=== PATIENT | male | born 1960 | race African-American/Black ===

== ENCOUNTER 2020-01-12 08:04 | Inpatient (IN) | payer MEDICAID, SELFPAY ==
[~2020-01-12] VITALS: Ht 177.8 cm; Wt 95.3 kg
--- NOTE | 2020-01-12 08:05 | NUR ---
Pt biba and taken to bed 05. [place] pd at bedside
[2020-01-12 08:10] VITALS: BP 124/78
--- NOTE | 2020-01-12 08:13 | NUR ---
[facility] Aware of patient and will help assist with placement. Send intake paperwork to [phone].
--- NOTE | 2020-01-12 08:18 | NUR ---
URINE SAMPLE HANDED TO COUNSELING DIRECTOR AT BEDSIDE
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
--- NOTE | 2020-01-12 08:19 | NUR ---
SUPERVISOR DIALS AT BEDSIDE FOR BLOOD DRAW
--- NOTE | 2020-01-12 08:22 | NUR ---
ALL ITEMS REMOVED FROM ROOM THAT COULD CAUSE POTENTIAL HARM AND SITTER AT BEDSIDE
--- NOTE | 2020-01-12 08:22 | NUR ---
EMT AT BEDSIDE FOR EKG
[2020-01-12 08:29] LABS: BASOPHILS # (AUTO) 0.1 K/uL (0.00-0.22); BASOPHILS % (AUTO) 2.1 % (0.0-2.0); EOSINOPHILS # (AUTO) 0.2 K/uL (0-0.4); EOSINOPHILS % (AUTO) 4.6 % (0.0-4.0); HEMATOCRIT 43.2 % (36-52); HEMOGLOBIN 14.4 g/dL (12.0-18.0); LYMPHOCYTES # (AUTO) 1.7 K/uL (2.0-11.5); LYMPHOCYTES % (AUTO) 32.8 % (20.5-51.1); MEAN CORPUSCULAR HEMOGLOBIN 30 pg (27-31); MEAN CORPUSCULAR HGB CONC 33 g/dL (33-37); MEAN CORPUSCULAR VOLUME 89.4 fL (80-94); MONOCYTES # (AUTO) 0.5 K/uL (0.8-1.0); MONOCYTES % (AUTO) 8.9 % (1.7-9.3); NEUTROPHILS # (AUTO) 2.7 K/uL (1.8-7.7); NEUTROPHILS % (AUTO) 51.6 % (42.2-75.2); PLATELET COUNT (AUTO) 238 K/uL (140-450); RED BLOOD CELL COUNT(AUTO) 4.83 MIL/uL (4.20-6.10); RED CELL DISTRIBUTION WIDTH 16.6 % (11.6-13.7); WHITE BLOOD COUNT (AUTO) 5.3 K/uL (4.8-10.8)
[2020-01-12] MEDS ORDERED: ASPIRIN 325 MG TAB PO ONE (08:30)
--- NOTE | 2020-01-12 08:32 | NUR ---
CXR AT BEDSIDE
[2020-01-12 08:33] LABS: APPEARANCE,URINE CLOUDY (CLEAR); BILIRUBIN,URINE NEGATIVE (NEGATIVE); BLOOD, URINE 3+ (NEGATIVE); COLOR,URINE BROWN (YELLOW); LEUKOCYTE ESTERASE ,URINE TRACE (NEGATIVE); NITRITE, URINE POSITIVE (NEGATIVE); PH,URINE 5.5 (5.0-9.0); UGLUCOSE NEGATIVE (NEGATIVE)
--- NOTE | 2020-01-12 08:33 | NUR ---
DR. SWAN EVALUATING PT AT BEDSIDE
[2020-01-12 08:43] LABS: RBC,URINE TOO NUMEROUS TO COUN /HPF (0-5)
[2020-01-12 08:47] LABS: ALBUMIN 3.7 g/dL (3.4-5.0); CARBON DIOXIDE 24.2 mmol/L (21-32); CREATININE 1.2 mg/dL (0.6-1.3); POTASSIUM 4.2 mmol/L (3.5-5.1); TOTAL BILIRUBIN 0.7 mg/dL (0.0-1.0)
[2020-01-12 09:01] LABS: SALICYLATE 2.8 mg/dL (2.8-20.0)
[2020-01-12 09:02] LABS: ACETAMINOPHEN < 0.5 ug/ml (10-30)
--- NOTE | 2020-01-12 09:29 | NUR ---
PT IS SLEEPING IN BED AT THIS TIME AND IS AROUSEABLE TO VOICE. BED IN HIGHEST POSITION AND SIDE RAILS UP FOR SAFETY
--- NOTE | 2020-01-12 11:45 | NUR ---
Dung spears in [facility] - 01/12/20 at 1203 by LUIS CARLOS PT TAKEN TO CT VIA WHEELCHAIR
--- NOTE | 2020-01-12 12:16 | NUR ---
pt resting with eyes closed, visible rise and fall of the chest. rr even and unlabored. denies pain. vss. will continue to monitor
--- NOTE | 2020-01-12 13:30 | NUR ---
PT SLEEPING IN BED. AROUSEABLE TO VOICE. BOTH RAILS UP AND BED IN LOWEST POSITION
[2020-01-12] MEDS ORDERED: PHARMACY TO DOSE MC PRN (15:00)
[2020-01-12] MEDS ORDERED: ARIPiprazole 10 MG TAB PO STA (15:00)
[2020-01-12] MEDS ORDERED: buPROPion 100 MG TAB PO STA (15:00)
[2020-01-12] MEDS ORDERED: ACETAMINOPHEN 325 MG TAB PO ONE (15:00)
[2020-01-12] MEDS ORDERED: BENZTROPINE 1 MG TAB PO SCH (15:37)
--- NOTE | 2020-01-12 16:10 | NUR ---
PT SLEPPING IN BED, EASILY AROUSEABLE TO VOICE. PT CHST RISE AND FALL SYMMETRICAL. WILL CONTINUE TO MONITOR
--- NOTE | 2020-01-12 16:48 | NUR ---
[facility] is aware of need for psych inpatient placement. Referral has been forwarded to the following facilities: [facility]
--- NOTE | 2020-01-12 19:15 | NUR ---
RECEIVED REPORT FROM MORAIMA SEBASTIAN. WILL CONT CARE AT THIS TIME.
--- NOTE | 2020-01-12 20:05 | NUR ---
PT IS SLEEPING COMFORTABLY. NO DISTRESS NOTED. EQUAL CHEST RISE AND FALL.
--- NOTE | 2020-01-12 21:32 | NUR ---
PLAN OF CARE. PT IS GETTING ADMITTED. PT IS SLEEPING COMFORTABLY AND NO DISTRESS NOTED.
--- NOTE | 2020-01-12 21:47 | NUR ---
PLAN OF CARE UPDATE: PT IS GETTING ADMITTED, WAITING ON ADMIT ORDERS AT THIS TIME. NO BEDS AVAILABLE IN [facility] FACILITIES.
--- NOTE | 2020-01-12 21:48 | NUR ---
PT UNABLE TO RECALL ANY HOME MEDICATIONS.
[2020-01-12] MEDS ORDERED: ACETAMINOPHEN 325 MG TAB PO PRN (21:50)
[2020-01-12] MEDS ORDERED: ONDANSETRON 4 MG/2 ML VIAL IM/IVP PRN (21:50)
[2020-01-12] MEDS ORDERED: HYDROcodone/APAP 5/325 MG 1 TAB TAB PO PRN (21:50)
[2020-01-12] MEDS ORDERED: DOCUSATE SODIUM 100 MG GELCAP PO PRN (21:50)
[2020-01-12 22:05] VITALS: BP 109/63
--- NOTE | 2020-01-12 22:05 | NUR ---
RECEIVED PT FROM ER NURSEMARLYN. PT CAME IN WHEELCHAIR AND ABLE TO AMBULATE TO [facility] BED. PT BREATHING EVEN AND UNLABORED TO ROOM AIR. NO IV SITE NOTED. SKIN INTACT, WARM AND DRY TO TOUCH. DX: SI, 1:[address] VS CHECKED, WITHIN PT'S BASELINE. MRSA SWAB DONE, BED IN LOW POSITION. WILL CONTINUE TO MONITOR.
--- NOTE | 2020-01-12 22:05 | NUR ---
Patient will be admitted to care of DR. PHILLIPS. Admited to MS/. Will go to room 109A. Belongings list completed. Report to MORAIMA GOMEZ.
[2020-01-12] MEDS ORDERED: BENZ-203 PO (22:30)
[2020-01-12] MEDS ORDERED: ALLO100T21 PO (22:30)
[2020-01-12] MEDS ORDERED: ARIP5TAB8 PO (22:30)
[2020-01-12] MEDS ORDERED: BUPR-10 PO (22:30)
[2020-01-12] MEDS ORDERED: TAMS0.4C96 PO (22:30)
[2020-01-12 22:31] LABS: BARBITURATE, URINE NEGATIVE ng/ml (NEG <=200); BENZODIAZEPINE, URINE NEGATIVE ng/mL (NEG <=200); CANNABINOID, URINE POSITIVE ng/mL (NEG <=50); COCAINE, URINE POSITIVE ng/mL (NEG <=300); OPIATE, URINE NEGATIVE ng/mL (NEG <=2000); PHENCYCLIDINE SCREEN,URINE NEGATIVE ng/mL (NEG <=25)
--- NOTE | 2020-01-12 22:40 | NUR ---
ATTEMPTED IV START FOR ROCEPHIN, PT REFUSED IV START. EXPLAINED BENEFIT AND RISK 3 TIMES, PT STILL REFUSED. REPORTED TO RESIDENT AND WILL CHANGE ROCEPHIN TO IM.
[2020-01-12 22:51] LABS: MAGNESIUM 2.2 mg/dL (1.8-2.4); PHOSPHORUS 4.2 mg/dL (2.5-4.9); THYROID STIMULATING HORMONE 0.73 uIU/mL (0.34-3.74)
--- NOTE | 2020-01-13 | NUR ---
PT REFUSED VITAL SIGN CHECK. EXPLAINED BENEFIT AND RISK 3TIMES, PT STILL REFUSED.
--- NOTE | 2020-01-13 00:50 | NUR ---
Called the following facilities [facility] s/w Gabby Jean [facility] s/w Karen [facility] s/w Karen [facility] s/w [facility] s/w [facility] s/w Rhoda [facility] s/w Елена still no beds available. Call in the am for any discharges
--- NOTE | 2020-01-13 02:41 | NUR ---
PT SLEEPING IN BED COMFORTABLY. NO ACUTE DISTRESS NOTED.
--- NOTE | 2020-01-13 04:15 | NUR ---
PT SLEEPING IN BED COMFORTABLY. NO ACUTE DISTRESS NOTED.
--- NOTE | 2020-01-13 06:57 | NUR ---
PT IN STABLE CONDITION. WILL ENDORSE PT TO DAY SHIFT NURSE FOR CONTINUOUS CARE.
--- NOTE | 2020-01-13 07:20 | NUR ---
RECEIVED BEDSIDE SHIFT REPORT FROM METERMAN NURSE FOR CONTINUATION OF CARE.
[2020-01-13] MEDS ORDERED: LIDOCAINE MPF 1% 0 ML ONE (08:08)
[2020-01-13] MEDS ORDERED: cefTRIAXone 1,000 MG VIAL ONE (08:08)
[2020-01-13] MEDS ORDERED: ARIPiprazole 10 MG TAB PO SCH (09:00)
[2020-01-13] MEDS ORDERED: NICOTINE TRANSD SYS 14 MG/24 HR PATCH TD SCH (09:00)
[2020-01-13] MEDS ORDERED: TAMSULOSIN 0.4 MG CAP PO SCH (09:00)
[2020-01-13] MEDS ORDERED: cefTRIAXone 1,000 MG in LIDOCAINE MPF 1% 2.1 ML IM SCH (09:00)
[2020-01-13] MEDS ORDERED: ALLOPURINOL 100 MG TAB PO SCH (09:00)
[2020-01-13] MEDS ORDERED: CEFUROXIME AXETIL 250 MG TAB PO SCH (09:00)
[2020-01-13] MEDS ORDERED: buPROPion 100 MG TAB PO SCH (09:00)
[2020-01-13] MEDS ORDERED: BENZTROPINE 1 MG TAB PO SCH ×2 (09:00)
--- NOTE | 2020-01-13 09:00 | NUR ---
PATIENT IS IRRITABLE, REFUSING VITAL SIGNS, AND REQUESTING TO BE DISCHARGED. EDUCATED PATIENT ON 5150 STATUS. PATIENT VERBALIZED UNDERSTANDING. WILL CONTINUE TO MONITOR.
[2020-01-13] MEDS ORDERED: LORazepam 2 MG/ML VIAL IVP PRN (10:00)
[2020-01-13] MEDS ORDERED: diphenhydrAMINE 50 MG/ML VIAL IVP PRN (10:00)
[2020-01-13] MEDS ORDERED: SULFAMETH/TRIMETH DS 800/160MG 1 TAB PO SCH ×2 (10:00→21:00)
[2020-01-13] MEDS ORDERED: risperiDONE 1 MG TAB PO SCH (10:30)
--- NOTE | 2020-01-13 11:33 | NUR ---
PATIENT TOLERATED MORNING MEDICATION ADMINISTRATION. REFUSED IM ANTIBIOTICS AND REFUSED PSYCH MEDS. WILL CONTINUE TO MONITOR.
--- NOTE | 2020-01-13 12:11 | NUR ---
CONTACTED DR. URRUTIA REGARDING THE CONSULT BUT OOT, DR. MAVERICK Tejeda ([phone]) SUPERVISOR PRODUCTION MANAGING. PER DR. TEMPLE, HE WILL TRY HIS BEST TO SEE PT TODAY. RN ASSIGNED MADE AWARE.
--- NOTE | 2020-01-13 13:00 | NUR ---
PATIENT IS RESTING IN BED, DENIES PAIN, COMFORTABLY. EDUCATED TO LET STAFF KNOW IF SI RETURNS. WILL CONTINUE TO MONITOR.
--- NOTE | 2020-01-13 14:14 | NUR ---
ROUNDS MADE FOR SAFETY, PT ON 1:1 FOR SAFETY. DENIES SI AT THIS TIME. WILL CONTINUE TO MONITOR.
[2020-01-13 16:00] VITALS: BP 109/63
[2020-01-13] MEDS ORDERED: ABI10 PO (16:40)
[2020-01-13] MEDS ORDERED: SULF-47 PO (16:40)
[2020-01-13] MEDS ORDERED: COG1 PO (16:40)
[2020-01-13] MEDS ORDERED: WEL100 PO (16:40)
[2020-01-13] MEDS ORDERED: TAMS0.4C96 PO (16:40)
[2020-01-13] MEDS ORDERED: ALLO100T21 PO (16:40)
--- NOTE | 2020-01-13 18:19 | NUR ---
Monitoring and assessing for bed placement [place] [facility] S/[facility] [place] - Adult bed available. Refaxed intake paperwork to review [place] [facility] S/[facility] [place] - ABY bed open - Faxed intake information for review [facility] - [place] - No Beds [facility] - [facility] - No Beds [place] - Wait list [facility] [place] - No male beds [place] - No Beds
--- NOTE | 2020-01-13 18:40 | NUR ---
PATIENT WAS DC'D FROM [facility]. MEDICALLY STABLE, PROVIDED BUS PASS AND DISCHARGE PAPERWORK. CLOTHES AND BELONGINGS RETURNED TO PATIENT.
[2020-01-14] MEDS ORDERED: risperiDONE 1 MG TAB PO SCH (09:00)
== END 2020-01-13 18:40 | disposition home or self-care (01) | DRG 463 ==
LOC: MED 08:04 → MTU 21:50 → MMU 01-13 05:37
PROVIDERS: ADMIT General Practice; ATTEND General Practice
DX: N39.0 Urinary tract infection, site not specified (principal); R45.851 Suicidal ideations; F20.0 Paranoid schizophrenia; Z68.30 Body mass index [BMI] 30.0-30.9, adult; R31.9 Hematuria, unspecified; F43.10 Post-traumatic stress disorder, unspecified; E66.9 Obesity, unspecified; F12.90 Cannabis use, unspecified, uncomplicated; F14.90 Cocaine use, unspecified, uncomplicated; N40.0 Benign prostatic hyperplasia without lower urinary tract symptoms; Z91.19 Patient's noncompliance with other medical treatment and regimen; N41.9 Inflammatory disease of prostate, unspecified; B96.89 Other specified bacterial agents as the cause of diseases classified elsewhere; Z20.828 Contact with and (suspected) exposure to other viral communicable diseases; Z88.8 Allergy status to other drugs, medicaments and biological substances; Z86.73 Personal history of transient ischemic attack (TIA), and cerebral infarction without residual deficits; Z59.0 Homelessness
CPT/HCPCS: 36415; 71045; 76770; 80053; 80305; 81001; 83036; 83735; 83880; 84100; 84443; 84484; 85025; 87081; 87086; 87186; 93005; 99285; G0378; G0480; G0482; J0696; J2001; J7030; J7060; Q0092; U0003-CS